=== PATIENT | female | born 1990 | race African-American/Black ===

== ENCOUNTER 2016-11-21 17:24 | Emergency (ER) | payer OTHER ==
--- NOTE | ~2016-11-21 | CT2 ---
[facility] A Service of [facility] & [facility] RADIOLOGY TEXT RESULTS PATIENT: EFRAIN SORIANO LOCATION: [facility] : [birth year] UNIT #: [id number] AGE: [address]: Dhruv Beltran MD SEX: F ORDER DR: [id number] [facility] [address] [place], [place] [address] [id number] E MR#: [id number] Acc #: [id number] NAME: EFRAIN SORIANO : 1990 SEX: F STUDY DATE/TIME: 11/21/2016 21:41 UNIT: [facility] ROOM: STUDY DESCRIPTION: CT Abd and Pelv W Cont Attending Physician: Dhruv Beltran Ordering Physician: Er Physicians Primary Care Physician: Primary Care Physician No MEDICAL IMAGING REPORT This report is preliminary unless electronic signature is present EXAM CT abdomen and pelvis with contrast HISTORY Nausea, vomiting, generalized body pain since yesterday. The CT exam was performed with one or more of the following radiation dose reduction techniques: automatic exposure control, adjustment of mA and/or kV according to patient size, and iterative reconstruction. FINDINGS Axial images performed through the abdomen and pelvis following IV and oral contrast. Multiplanar reconstructed images reviewed at a workstation. ABDOMEN: The lung bases unremarkable. The liver, spleen and gallbladder appear normal. The pancreas and adrenal glands unremarkable. Right kidney appears normal. The left kidney demonstrates slightly decreased enhancement diffusely but more focal hypoattenuation within the mid polar region of the left kidney and also within the medial aspect of the left lower pole. The findings are nonspecific but raises a concern for pyelonephritis and focal lobar nephronia or infection. No definitive abscess. No obstruction. Visualized GI tract unremarkable. No free air. Bladder, uterus, and adnexa unremarkable. There may be a trace amount of pelvic fluid. Osseous structures and soft tissues appear normal. IMPRESSION Subtle abnormal enhancement of the left kidney as well as focal areas of abnormal enhancement of the mid polar region of the left kidney and also the medial aspect of the lower pole. Findings are nonspecific but raises the concern for pyelonephritis and focal lobar nephronia or focal [facility] Service of [facility] & [facility] RADIOLOGY TEXT RESULTS PATIENT: EFRAIN SORIANO [id number] : [birth year] UNIT #: [id number] AGE: [address]: Dhruv Beltran MD SEX: F ORDER DR: infection. Recommend clinical followup. Dictated by... Phuong Vasquez M.D. THIS IS AN ELECTRONICALLY VERIFIED REPORT Phuong Vasquez M.D. at 11/22/2016 10:06 AM Sree TD: 11/22/2016 09:53 JOB #: [id number] MEDICAL IMAGING REPORT Page 1 of 1 COPY
[2016-11-21 16:23] LABS: URINE SOURCE CLEAN CATCH
[2016-11-21 16:48] LABS: URINE APPEARANCE HAZY; URINE COLOR YELLOW; URINE GLUCOSE NORM (NEG); URINE KETONE 3+ (NEG); URINE LEUKOCYTE ESTERASE 1+ (NEG); URINE NITRATE POS (NEG); URINE PH 6.5 (5-8); URINE PROTEIN 1+ (NEG)
[2016-11-21 16:49] LABS: URINE BILIRUBIN NEG (NEG); URINE BLOOD 2+ (NEG); URINE UROBILINOGEN NORM (NEG)
[2016-11-21 16:52] LABS: CULTURE INDICATED? YES; URINE BACTERIA AUWI 1+ (NEGATIVE); URINE MUCUS PRESENT; URINE SQUAMOUS EPITHELIAL CELL MODERATE /[HPF]
[2016-11-21 17:14] LABS: BASOPHIL# 0.1 X10e3 (0-0.3); BASOPHIL% 0.3 % (0-2.5); DIFF IND YES; HEMOGLOBIN 12.9 gm/dL (12.0-16.0); LYMPHOCYTE# 0.5 X10e3 (1.0-3.5); LYMPHOCYTE% 2.8 % (17.0-45.0); MEAN CELL VOLUME 81.8 FL (83-96); MEAN CORPUSCULAR HEMOGLOBIN 27.1 PG (28-34); MEAN CORPUSCULAR HGB CONC 33.1 g/dL (30-36); MEAN PLATELET VOLUME 7.7 FL (6.5-11.5); MONOCYTE% 5.7 % (3.0-12.0); NEUTROPHIL# 16.1 X10e3 (1.5-7.1); NEUTROPHIL% 91.2 % (40-75); PLATELET COUNT 263 X10e3 (140-420); RED BLOOD COUNT 4.77 X10e (3.90-5.30); RED CELL DISTRIBUTION WIDTH 15.7 % (11.0-15.5); WHITE BLOOD COUNT 17.7 X10e3 (4.0-10.5)
[~2016-11-21 17:24] MED LIST: BENTYL20 MG PO; CIPRO PO; DOXYCYCLINE HY100 M3 PO; FAMOTIDINE PO; NO MEDICATIONS; PEPTO-BISM525 MG/15 PO; PHENERGAN25 M1 PO; VICODIN 5/1 TAB 5/50 PO
[2016-11-21 17:26] LABS: ALBUMIN SERUM 4.3 g/dL (3.5-5.0); BILIRUBIN, DIRECT 0.1 mg/dL (0.0-0.2); BILIRUBIN,INDIRECT 0.8 mg/dL (0.0-0.9); BILIRUBIN,TOTAL 0.9 mg/dL (0.2-2.0); BUN/CREATININE RATIO 11.25; CALCIUM SERUM 9.1 mg/dL (8.4-10.2); CREATININE SERUM 0.8 mg/dL (0.6-1.4); GLOM FILT RATE Estimated 118.9 mL/min (>60); POTASSIUM 3.2 mmol/L (3.5-5.1); PROTEIN TOTAL SERUM 8.2 g/dL (6.0-8.3)
[2016-11-21 17:37] LABS: ACANTHOCYTES PRESENT; ANISOCYTOSIS SL; BURR CELLS PRESENT; OVALOCYTES PRESENT; PLATELET ESTIMATE NORMAL (NORMAL)
[2016-11-21 17:39] LABS: POIKILOCYTOSIS MOD
== END 2016-11-21 23:05 | disposition home or self-care (01) ==
LOC: CED 17:24
PROVIDERS: Emergency Medicine
DX: N12 Tubulo-interstitial nephritis, not specified as acute or chronic (principal); R19.7 Diarrhea, unspecified; K21.9 Gastro-esophageal reflux disease without esophagitis; F17.210 Nicotine dependence, cigarettes, uncomplicated
CPT/HCPCS: 36415; 74177; 80048; 80076; 81003; 83690; 84703; 85025; 87086; 87088; 87186; 96361; 96365; 96374; 96375; 99284; J0696; J1885; J2270; J2405; J2550; Q9967